=== PATIENT | male | born 1970 | race Caucasian/White ===

== ENCOUNTER → 2016-12-17 | Outpatient (CLI) | payer BC ==
--- NOTE | 2016-12-17 09:18 | XR ---
EXAMINATION TYPE: XR lumbar spine 2 or 3V DATE OF EXAM ORDERED: 12/17/2016 8:02 AM HISTORY: M54.5 low back pain. COMPARISON: There is a mild levoscoliosis. FINDINGS: Vertebral body height and alignment are maintained. There is no evidence of spondylolysis o r spondylolisthesis. There is severe disc space loss and vacuum phenomena present at L5-S1. There is mild hypertrophic spondylosis at L4-5 and L5-S1. The pedicles are intact.. IMPRESSION: 1. NO ACUTE OSSEOUS LESION. 2. DEGENERATIVE CHANGE.
== END ==
LOC: RADXRMAIN 07:51
PROVIDERS: ATTEND Family Medicine
DX: M47.816 Spondylosis without myelopathy or radiculopathy, lumbar region (principal)
CPT/HCPCS: 72100

== ENCOUNTER → 2017-02-07 | Outpatient (CLI) | payer BC ==
--- NOTE | 2017-02-07 19:03 | MR ---
EXAMINATION TYPE: MR thoracic spine wo con DATE OF EXAM: 02/07/2017 6:46 PM COMPARISON: NONE HISTORY: PAIN IN THORACIC SPINE Standard multiplanar, multisequence MRI departmental protocol Multiplanar, multisequence images of the thoracic spine were acquired. Diffusion weighted imaging was performed. FINDINGS: The slight curvature of the spine. Vertebral body height is maintained at virtually every level. Disc signal is maintained. There are no compression deformities. T4-T5 there is minimal central disc bulging but no focal herniation, canal stenosis, spinal cord cont act, or foraminal encroachment. At T7-T8 there is a focal right paracentral disc herniation which abuts the anterior margin the spina l cord. There does appear to be very mild anterior mass effect. No abnormal signal within the spinal cord to suggest myelitis. At T10-T11 there is minimal central disc bulging but no canal stenosis or focal herniation. No forami nal encroachment. At T11-T12 there is no disc herniation or canal stenosis. No foraminal encroachment. No abnormal signal the visualized paraspinal soft tissues or spinal cord. IMPRESSION: 1. Focal right paracentral disc herniation T7-T8 which abuts the anterior margin of the spinal cord a nd results in mild anterior compression. No evidence of myelitis. 2. Minimal central disc bulging T4-T5 and T10-T11 with no focal herniation or canal stenosis.
== END | disposition home or self-care (01) ==
LOC: RADMRIMAIN 18:00
PROVIDERS: ATTEND Family Medicine
DX: M51.24 Other intervertebral disc displacement, thoracic region (principal)
CPT/HCPCS: 72146

== ENCOUNTER → 2017-03-16 | Outpatient (CLI) | payer BC ==
--- NOTE | 2017-03-16 21:16 | MR ---
EXAMINATION TYPE: MR lumbar spine wo con DATE OF EXAM: 03/16/2017 COMPARISON: Lumbar spine x-ray December 17, 2016. HISTORY: LBP since 06-03-16, no trauma TECHNIQUE: Multiplanar, multisequence imaging of the lumbar spine is performed without IV contrast. FINDINGS: Survey images show marked artifact overlying both hip joints. Sagittal images of the lumbar spine show vertebral body heights to appear satisfactory. There is grade 1 retrolisthesis of L5 on S 1 measured 5 to 6 mm on sagittal images. There is disc desiccation with advanced disc space narrowing L5-S1 level otherwise the intervertebral discs demonstrate normal heights and hydration. The conus medullaris is normal in position and signal ending at T12-L1 disc space level. There is heterogeneous increased T1 and T2 signal consistent with Modic type II degenerative change. There is a well-circum scribed low T1 and increased T2 signal and S2 vertebra suspected enchondroma or other benign etiology . No significant spurring is seen. Axial images show the T12-L1, L1-L2, and L2-L3 levels all to appear within normal limits. Axial images at L3-L4 level show mild facet degenerative changes and mild broad disc bulge mildly eff acing anterior thecal sac, bilateral neural foramina are patent. Axial images at L4-L5 level show mild broad disc bulge but spinal canal is preserved and bilateral ne ural foramina are patent. Mild facet degenerative changes bilaterally are present. Axial images at L5-S1 level show central disc protrusion minimally effacing anterior thecal sac. Mild facet arthropathy is present bilaterally. Bilateral neural foramina are patent. IMPRESSION: Multilevel degenerative changes in the mid to lower lumbar spine most prominent at L5-S1 level where there is spondylolisthesis and advanced disc space narrowing.
== END | disposition home or self-care (01) ==
LOC: RADMRIMAIN 17:49
PROVIDERS: ATTEND Physical Medicine & Rehabilitation
DX: M48.06 Spinal stenosis, lumbar region (principal); M47.816 Spondylosis without myelopathy or radiculopathy, lumbar region; M43.16 Spondylolisthesis, lumbar region
CPT/HCPCS: 72148

== ENCOUNTER 2017-06-12 11:29 | Emergency (ER) | payer BC ==
[2017-06-12 12:06] VITALS: RESP 16
--- NOTE | 2017-06-12 12:56 | ED ---
General Adult HPI - General Chief complaint: Extremity Injury, Upper Stated complaint: wrist pain Time Seen by Provider: 06/12/17 12:41 Source: patient, family, RN notes reviewed Mode of arrival: ambulatory Limitations: no limitations - History of Present Illness Initial comments: Patient 46-year-old male who presents emergency room today with a chief complaint of increased pain to the right wrist. He does with that he was at work earlier in the week and had to lift the heavy part properly. He doesn't that he's had pain with certain movements since that time. He has seen some swelling. Patient states he has not been icing. Has not taken for the pain. He denies any other complaints or associated symptoms. Patient denies any recent fever, chills, shortness of breath, chest pain, back pain, abdominal pain , nausea or vomiting, numbness or tingling, dysuria or hematuria, constipation or diarrhea, headaches or visual changes, or any other complaints. - Related Data Allergies Allergy/AdvReac Type Severity Reaction Status Date / Time morphine Allergy Unknown Verified 06/12/17 12:03 Penicillins Allergy Unknown Verified 06/12/17 12:03 medrol dose pack Allergy Unknown Uncoded 06/12/17 12:03 Review of Systems ROS Statement: Those systems with pertinent positive or pertinent negative responses have been documented in the HPI. ROS Other: All systems not noted in ROS Statement are negative. Past Medical History Past Medical History: Hypertension History of Any Multi-Drug Resistant Organisms: None Reported Past Surgical History: Hernia Repair Additional Past Surgical History / Comment(s): left acl repair, alicia hip replaced , vasectomy, eye surgery Past Psychological History: No Psychological Hx Reported Smoking Status: Never smoker Past Alcohol Use History: None Reported Past Drug Use History: None Reported General Exam - General Exam Comments Initial Comments: General: The patient is awake and alert, in no distress, and does not appear acutely ill. Neck: The neck is supple, there is no tenderness or JVD. Cardiovascular: There is a regular rate and rhythm. No murmur, rub or gallop is appreciated. Respiratory: Lungs are clear to auscultation, respirations are non-labored, breath sounds are equal. No wheezes, stridor, rales, or rhonchi. Musculoskeletal: Patient does have some mild swelling to the right wrist area. There is no redness or erythema. Patient shows full range of motion. Pain is reproduced with extension at the right wrist against resistance. No bony tenderness on exam. Sensation intact. Pulses equal bilaterally 2+ peripheral strength is 5/5. Neurological: A&O x 3. CN II-XII intact, There are no obvious motor or sensory deficits. Coordination appears grossly intact. Speech is normal. Skin: Skin is warm and dry and no rashes or lesions are noted. Psychiatric: Normal mood and affect. Limitations: no limitations Course Vital Signs 06/12/17 06/12/17 12:03 13:13 Temperature 100 F H 98.8 F Pulse Rate 117 H 100 Respiratory 16 16 Rate Blood Pressure 168/90 154/86 O2 Sat by Pulse 100 98 Oximetry Medical Decision Making - Medical Decision Making X-rays negative for any acute fracture dislocation. Results were discussed with the patient.. Follow-up with OB doctor over the next week if symptoms are not improving. Advised return to emergency room if any symptoms increase or worsen appropriate concerns. Disposition Clinical Impression: Sprain of wrist, right Disposition: HOME SELF-CARE Condition: Good Instructions: Wrist Injury (ED) Additional Instructions: Please use medication as discussed. Please follow-up with orthopedic/family doctor in the next 7-10 days of symptoms have not improved. Please return to emergency room if the symptoms increase or worsen or for any other concerns. Referrals: Atul Neal DO [Primary Care Provider] - 1-2 days Santosh Good MD [Medical Doctor] - 1-2 days Time of Disposition: 13:32
--- NOTE | 2017-06-12 13:09 | XR ---
EXAMINATION TYPE: XR wrist complete RT , 4 VIEWS DATE OF EXAM ORDERED: 06/12/2017 HISTORY: Pain. COMPARISON: None. FINDINGS: There is a well-corticated ossific density adjacent to the ulnar styloid on the right. Thi s may relate to previous trauma no acute fracture or dislocation is seen. IMPRESSION: 1. NO ACUTE OSSEOUS LESION. 2. EVIDENCE OF OLD TRAUMA.
[2017-06-12 13:14] VITALS: BP 154/86; PULSE 100; TEMP 98.8
== END 2017-06-12 13:36 | disposition home or self-care (01) ==
LOC: EC 11:29
DX: S63.501A Unspecified sprain of right wrist, initial encounter (principal); Z88.0 Allergy status to penicillin; Z88.5 Allergy status to narcotic agent; Z88.8 Allergy status to other drugs, medicaments and biological substances; X50.0XXA Overexertion from strenuous movement or load, initial encounter; Y99.0 Civilian activity done for income or pay; Y92.69 Other specified industrial and construction area as the place of occurrence of the external cause
CPT/HCPCS: 99283

== ENCOUNTER → 2018-08-31 | Outpatient (CLI) | payer BC ==
--- NOTE | 2018-09-01 07:33 | MR ---
EXAMINATION TYPE: MR lumbar spine wo con DATE OF EXAM: 08/31/2018 COMPARISON: Prior MRI lumbar spine March 16, 2017. Lumbar spine x-ray December 17, 2016 HISTORY: Low back pain per order. Back pain for 2 years going into bilateral buttocks per patient. TECHNIQUE: Multiplanar, multisequence imaging of the lumbar spine is performed without IV contrast. FINDINGS: Sagittal images of the lumbar spine show vertebral body heights to remain satisfactory. The re is slight grade 1 retrolisthesis of L5 on S1 redemonstrated. There is disc desiccation with fairly advanced disc space narrowing and heterogeneous Modic type II endplate changes with mild anterior sp urring L5-S1 level redemonstrated. The intervertebral discs otherwise demonstrate normal heights and hydration. No new large posterior disc herniations are seen on sagittal images. The conus medullaris remains normal in position and signal ending at T12-L1 level. There is well-defined low T1 and increa sed T2 lesions S2 vertebra favoring enchondroma or other nonaggressive etiology. Axial images show the T12-L1, L1-L2, and L2-L3 levels all to appear within normal limits. Axial images at the L3-L4 level show mild facet degenerative changes bilaterally with mild/moderate b road disc bulge mildly effacing anterior thecal sac. Bilateral neural foramina are patent. No signifi cant change from prior. Axial images at the L4-L5 level show mild broad disc bulge but spinal canal is preserved and bilatera l neural foramina are patent. Mild facet degenerative changes bilaterally are redemonstrated. Axial images at the L5-S1 level show spondylolisthesis with central disc protrusion minimally effacin g anterior thecal sac. There is mild facet degenerative changes bilaterally. Right-sided neural sydnee agapito shows mild inferior narrowing. Left-sided neural foramen is patent. No significant change from pr ior. IMPRESSION: Multilevel degenerative changes in the mid to lower lumbar spine without significant arroyo ge or progression from prior MRI. Most prominent findings noted L5-S1 level. No significant focal dis c herniation seen to account for patient's bilateral radiculopathy type symptoms.
== END | disposition home or self-care (01) ==
LOC: RADMRIMAIN 06:41
PROVIDERS: ATTEND Neurological Surgery
DX: M47.816 Spondylosis without myelopathy or radiculopathy, lumbar region (principal)
CPT/HCPCS: 72148

== ENCOUNTER → 2020-05-12 | Outpatient (CLI) | payer BC | END | disposition home or self-care (01) | LOC: LABWHC1 14:44 | PROVIDERS: ATTEND Family Medicine | DX: Z11.59 Encounter for screening for other viral diseases (principal) | CPT/HCPCS: U0003; C9803 ==

== ENCOUNTER → 2021-02-18 | Outpatient (CLI) | payer BC ==
--- NOTE | 2021-02-19 11:41 | MM ---
Reason for exam: clinical finding. Indicated problem(s): lump or thickening in the left breast. Physical Findings: Nurse did not find any significant physical abnormalities on exam. MG 3D Diag Mammo W/Cad MARILEE Bilateral CC and MLO view(s) were taken. The breast tissue is heterogeneously dense. This may lower the sensitivity of mammography. Bilateral focal asymmetries retroareolar extending posteriorly. These results were verbally communicated with the patient and result sheet given to the patient on 02/18/21. ASSESSMENT: Incomplete: need additional imaging evaluation, BI-RAD 0 RECOMMENDATION: Ultrasound of both breasts.
--- NOTE | 2021-02-19 11:44 | USB ---
Reason for exam: additional evaluation requested from abnormal screening. US Breast BILAT Technologist: Ale Garcia Right limited breast ultrasound including focal area of concern, retroareolar and axilla demonstrates a hypoechoic lesion at the nipple. Left complete breast ultrasound includes all four quadrants, the retroareolar region and axilla. Finding demonstrates a hypoechoic lesion at the nipple. Bilateral diffuse breast tissue without cyst or mass. Finding consistent with bilateral gynecomastia. These results were verbally communicated with the patient and result sheet given to the patient on 02/18/21. ASSESSMENT: Benign, BI-RAD 2 RECOMMENDATION: Clinical management of both breasts. Manage patient on a clinical basis.
== END | disposition home or self-care (01) ==
LOC: RADMAMWWP 14:48
PROVIDERS: ATTEND Family Medicine
DX: R92.2 Inconclusive mammogram (principal); N64.89 Other specified disorders of breast
CPT/HCPCS: 77062; 77066

== ENCOUNTER → 2021-09-18 | Day surgery (SDC) | payer BC ==
[2021-09-16 09:49] VITALS: BMI 21.2
[~2021-09-18] MED LIST: LACTATED RINGERS 1,000 ML IV ONE; LACTATED RINGERS 1,000 ML IV SCH; LIDOCAINE 1% INJ 10MG/ML (20 ML MDV) ONE; PROPOFOL 10 MG/ML 20 ML VIAL IV ONE
[2021-09-18 09:53] VITALS: TEMP 97.9
--- NOTE | 2021-09-18 11:20 | P.PCN ---
Date of Procedure: 09/18/21 Procedure(s) Performed: BRIEF HISTORY: Patient is a 50-year-old pleasant male scheduled for an elective colonoscopy as a part of screening for colorectal neoplasia. PROCEDURE PERFORMED: Colonoscopy. PREOPERATIVE DIAGNOSIS: Screening for colon cancer. IV sedation per Anesthesia. PROCEDURE: After informed consent was obtained, the patient, was brought into the endoscopy unit. IV sedation was administered by Anesthesia under continuous monitoring. Digital rectal examination was normal. Initially the Olympus CF-160 flexible video colonoscope was then inserted in the rectum, gradually advanced into the cecum without any difficulty. Careful examination was performed as the scope was gradually being withdrawn. Ileocecal valve and the appendiceal orifice were visualized and appeared normal. Prep was poor in the right colon. Irrigation was performed.. Mucosa of the cecum, ascending colon, transverse colon, descending colon, sigmoid colon, and rectum appeared normal. Retroflexion was performed in the rectum and no lesions were seen. The patient tolerated the procedure well. IMPRESSION: Normal-appearing colon from rectum to cecum with no evidence of colorectal neoplasia . RECOMMENDATIONS: Findings of this examination were discussed with the patient as well as his family. He was advised to have a repeat screening colonoscopy in 10 years..
[2021-09-18 11:25] VITALS: RESP 17
[2021-09-18 11:35] VITALS: BP 147/93; PULSE 91
== END ==
LOC: ORWHC2ENDO 09:14
PROVIDERS: ATTEND Internal Medicine Gastroenterology
DX: Z12.11 Encounter for screening for malignant neoplasm of colon (principal)
CPT/HCPCS: 45378; J2001; J2704

== ENCOUNTER → 2022-07-12 | Outpatient (CLI) | payer BC ==
--- NOTE | 2022-07-12 18:08 | XR ---
Limited cervical spine HISTORY: Pain 3views of the cervical spine No comparisons Cervical vertebral bodies show preserved height and bone mineralization. Prevertebral soft tissues ar e normal. There is multilevel spondylosis. Some loss of disc height is present at C4-5 and C6-7. Mini mal anterolisthesis grade 1 C5-6. Some facet arthropathy changes are present. Soft tissue calcificati ons may be within the distribution of the carotid artery on the left. IMPRESSION: Degenerative disc disease and facet arthropathy. Possible atherosclerotic vascular calcif ications in the distribution of the carotid artery.
== END | disposition home or self-care (01) ==
LOC: RADXRMAIN 17:35
PROVIDERS: ATTEND Family Medicine
DX: M50.321 Other cervical disc degeneration at C4-C5 level (principal); M47.812 Spondylosis without myelopathy or radiculopathy, cervical region
CPT/HCPCS: 72040

== ENCOUNTER → 2022-08-09 | Outpatient (CLI) | payer BC ==
--- NOTE | 2022-08-09 20:18 | MR ---
EXAMINATION TYPE: MR thoracic spine wo con DATE OF EXAM: 08/09/2022 6:30 PM COMPARISON: 02/07/2017 thoracic spine MRI INDICATION: Patient age:Male; 51 years old; Reason for study: M51.34 OTHER INTERVERTEBRAL DISC DEGENERATION, THO; TECHNIQUE: Multi planar, multi sequence imaging was performed utilizing: T1-weighted and T2-weighted of the thoracic spine. The patient was not given Gadolinium. IV Contrast: None FINDINGS: The thoracic vertebral bodies have preserved heights and alignment. The osseous structure have normal signal intensity. Thoracic spinal cord appears unremarkable. There is a right central T7-T8 protrusi on which impresses upon the anterior spinal cord. No evidence of significant spinal canal neural fora lyla stenosis. IMPRESSION: Similar T7-T8 right central disc herniation which impresses upon the anterior spinal cord. No evidenc e of significant spinal cord stenosis.
== END | disposition home or self-care (01) ==
LOC: RADMRIMAIN 17:54
PROVIDERS: ATTEND Family Medicine
DX: M51.34 Other intervertebral disc degeneration, thoracic region (principal)
CPT/HCPCS: 72146

== ENCOUNTER → 2022-09-22 | Outpatient (CLI) | payer BC ==
[2022-09-22 13:54] VITALS: BP 168/93; PULSE 87; RESP 18; TEMP 98.4
--- NOTE | 2022-09-22 14:26 | P.PAINPG ---
PQRS Measure Charge Sheet Comment: HISTORY OF PRESENT ILLNESS: 51 yr old male w at side as a referral from [facility] presents today w severe and chronic mid back pain secondary to thoracic DDD, spondylosis and facet arthropathy without myelopathy for evaluation. Pt states pain level is at 9 /10 in intensity, constant, localized in the mid spine, dull/ achy in character w shooting pain towards the BL flanks. Pain is provoked by lifting, bending. Pain is alleviated by PT x 6 wks in Aug 2022, heat, ice, medications (Naproxen), repositioning and rest. PMH: HTN, OA PSH: Denies SH: Negative x 3. and lives w spouse. FH: Non contributory. All: See list Meds: See list REVIEW OF ORGAN SYSTEMS: CONSTITUTIONAL: No fevers or chills. No recent weight loss. NEUROLOGICAL: + numbness and tingling along the distal extremities. No seizure disorders or headaches. MUSCULOSKELETAL: + pain PSYCHIATRIC: Denies current depression or suicidal thoughts. Physical Examinations : Constitutional : Cooperative , not in acute distress . Neurologic : Cranial nerve II to XII intact. No focal neurological deficits. Psychiatric : alert & oriented x 3. Matching mood & appropriate affect. Judgment & insight intact. Musculoskeletal : Cervical Spine Motor strength in the deltoid and biceps: Normal right side. Normal Left side Motor strength biceps and the wrist extensors: Normal right side . Normal left side Motor strength in the triceps muscle: Normal right side. Normal left side Deep tendon reflexes: Normal at the biceps. Normal at Brachioradialis. Normal at triceps Vertebral body tenderness to deep palpation over Cervical facet loading test: positive bilaterally Spurling test: positive bilaterally Neck distraction test: positive bilaterally Luigi sign: positive bilaterally Thoracic spine Vertebral body TTP over T8 Lumbar spine Motor strength lower extremities ,thigh and legs 5/5 Right side , 5/5 Left side Deep tendon reflexes : Normal Knee Jerk. Normal Ankle Jerk Vertebral body tenderness over Lumbar facet Loading Test: positive Right / positive Left Range of motion of the lumbar spine Flexion 30 degrees, extension 10 degrees Straight Leg Raise test: Left/ Right positive at degree Radha test: positive right / positive left. Severe tenderness over the Sacroiliac joint on the Right / Left sides Gaenslen test: positive bilaterally Seated flexion test: positive bilaterally. Sacral spine : Severe tenderness over the Sacroiliac joint: right side / left side Range of motion: Flexion of the lumbar spine <60 degrees Range of motion: Extension of the lumbar spine <20 degrees Gaenslen's Test positive José Antonio's Test positive Radha test: positive right side / left side Thigh Thrust Test Sacral Thrust Test Imaging: MRI without contrast of the thoracic spine from 08/09/22 reviewed Assessment/ Plan : Thoracic DDD, Thoracic spondylosis Recommendation of DEVON T7-T8. May need a series, up to 3 within a 6 mo period, for optimal pain relief. Risks, benefits of procedure discussed and patient verbalized understanding. Admits aspirin or anti- coagulant use or medical history of diabetes. Protocol for discontinuation/ continuation of medications denzel procedure discussed. All questions answered. I have spent greater than 30 minutes on patient care today. Dr Grant was available by phone for the evaluation of this patient. The time was used to review the medical records including relevant urine studies and Prescription history (MAPs), review of the available imaging, evaluation and examination of the patient, coordination of care with the medical staff and if applicable referring physicians, as well as creation of the medical record PQRS Narrative: Smoking Status Never smoker Home Medications: Ambulatory Orders Cholecalciferol (Vitamin D3) [Vitamin D3 (125 MCG = 5,000 IU)] 125 mcg PO DAILY 09/16/21 Dover-3 Fatty Acids [Dover-3] 1,000 mg PO DAILY 09/16/21 lisinopriL [Zestril] 10 mg PO DAILY 09/16/21 Controlled Substance Measures - Controlled Substance Measures Is patient prescribed a controlled substance at discharge?: No
== END ==
LOC: PNWHC3 13:18
PROVIDERS: ATTEND Specialist
DX: M47.814 Spondylosis without myelopathy or radiculopathy, thoracic region (principal); M51.34 Other intervertebral disc degeneration, thoracic region; Z88.0 Allergy status to penicillin; Z88.5 Allergy status to narcotic agent; Z88.8 Allergy status to other drugs, medicaments and biological substances
CPT/HCPCS: 99211